=== PATIENT | female | born 1965 | race African-American/Black ===

== ENCOUNTER 2020-05-23 08:27 | Emergency (ER) | payer OTHER ==
[~2020-05-23] VITALS: Ht 167.6 cm; Wt 77.1 kg
[~2020-05-23 08:27] MED LIST: DIFLUCAN200 MG ORAL; DOXYCYCLINE MO100 MG ORAL; IBUPROFEN600 MG ORAL; MECLIZINE HCL25 MG ORAL
[2020-05-23] MEDS ORDERED: Omnipaque 350 100ml vial INJ PRN ×2 (08:45)
--- NOTE | 2020-05-23 08:45 | NUR ---
ED Nurse Note:pt. came from home with c/o sore throat, lump on left neck and numbness for 1 week, she is A/Ox4 ambulatory with steady gait, no fever, placed on teletypesetter monitor
[2020-05-23] MEDS ORDERED: HYDROCHLOROTH12.5 MG ORAL (08:51)
[2020-05-23] MEDS ORDERED: TRAZODONE HCL50 MG ORAL (08:51)
[2020-05-23 08:55] VITALS: BP 166/106
--- NOTE | 2020-05-23 08:55 | Emergency Room Report ---
History of Present Illness General Chief Complaint: Sore Throat Source: Patient Present Illness HPI 55-year-old female history of hypertension, history of treated syphilis, off her hypertensive meds for 6 months presents with sore throat fatigue generalized weakness, now with left arm tingling that started at 5 AM today, patient denies any fevers chills chest pain shortness of breath patient was concerned that she may be developing a stroke, she denies any slurring of her speech difficulty ambulating no known aggravating relieving factors severity is mild, constant patient presents for evaluation and treatment Allergies: Coded Allergies: PENICILLIN G (Unverified Allergy, Mild, 03/11/15) COVID-19 Screening Contact w/high risk pt: No Experienced COVID-19 symptoms?: No COVID-19 Testing performed CASINO ATTENDANT: No Patient History Past Medical History: see triage record Social History: Reports: smoking, alcohol use - Last drink today, drug use - Marijuana Now: No Reviewed Nursing Documentation: PMH: Agreed; PSxH: Agreed Nursing Documentation-PMH Past Medical History: No History, Except For Hx Hypertension: Yes Hx COPD: Yes Review of Systems All Other Systems: negative except mentioned in HPI Physical Exam Sp02 EP Interpretation: reviewed, normal General Appearance: well appearing, no apparent distress, alert Head: normocephalic, atraumatic Eyes: bilateral eye PERRL, bilateral eye EOMI ENT: uvula midline, moist mucus membranes Neck: supple, thyroid normal, supple/symm/no masses Respiratory: lungs clear, no respiratory distress, no retraction, no accessory muscle use Cardiovascular #1: normal peripheral pulses, regular rate, rhythm, no edema, no gallop, no murmur Gastrointestinal: non tender, soft, no guarding, no rebound Musculoskeletal: normal inspection Neurologic: alert, oriented x3, speech normal, normal gait, other - No facial droop Psychiatric: mood/affect normal Skin: no rash, warm/dry Medical Decision Making Diagnostic Impression: Primary Impression: Arm paresthesia, left Additional Impression: Pharyngitis Qualified Codes: J02.9 - Acute pharyngitis, unspecified ER Course 55-year-old female presents with sore throat, fatigue, paresthesias of the left arm, patient initially came concern for possible stroke last known well time 5 AM Neurological exam completely unremarkable Patient able to ambulate seen multiple times on her cell phone walking without any facial droop, dysarthria will rule out stroke MRI negative, CT head negative, CT neck shows pharyngitis We will start patient on clindamycin Return precautions discussed Disposition home with return precautions Laboratory Tests Test 05/23/20 09:00 05/23/20 09:05 05/23/20 09:08 Urine Color Yellow Urine Appearance Slightly cloudy Urine pH 6 (4.5-8.0) Urine Specific [place] 1.020 (1.005-1.035) Urine Protein Negative (NEGATIVE) Urine Glucose (UA) Negative (NEGATIVE) Urine Ketones Negative (NEGATIVE) Urine Blood 1+ (NEGATIVE) H Urine Nitrite Negative (NEGATIVE) Urine Bilirubin Negative (NEGATIVE) Urine Urobilinogen Normal MG/DL (0.0-1.0) Urine Leukocyte Esterase 3+ (NEGATIVE) H Urine RBC 0-2 /HPF (0 - 2) Urine WBC 20-30 /HPF (0 - 2) H Urine Squamous Epithelial Cells Few /LPF (NONE/OCC) Urine Bacteria Few /HPF (NONE) Urine Mucus Few /LPF (NONE/OCC) H Urine Opiates Screen Negative (NEGATIVE) Urine Barbiturates Screen Negative (NEGATIVE) Phencyclidine (PCP) Screen Negative (NEGATIVE) Urine Amphetamines Screen Negative (NEGATIVE) Urine Benzodiazepines Screen Negative (NEGATIVE) Urine Cocaine Screen Positive (NEGATIVE) H Urine Marijuana (THC) Screen Positive (NEGATIVE) H White Blood Count 6.4 K/UL (4.8-10.8) Red Blood Count 4.42 M/UL (4.20-5.40) Hemoglobin 13.4 G/DL (12.0-16.0) Hematocrit 38.2 % (37.0-47.0) Mean Corpuscular Volume 86 FL (80-99) Mean Corpuscular Hemoglobin 30.3 PG (27.0-31.0) Mean Corpuscular Hemoglobin Concent 35.1 G/DL (32.0-36.0) Red Cell Distribution Width 14.0 % (11.6-14.8) Platelet Count 249 K/UL (150-450) Mean Platelet Volume 7.1 FL (6.5-10.1) Neutrophils (%) (Auto) 63.5 % (45.0-75.0) Lymphocytes (%) (Auto) 26.5 % (20.0-45.0) Monocytes (%) (Auto) 8.2 % (1.0-10.0) Eosinophils (%) (Auto) 0.5 % (0.0-3.0) Basophils (%) (Auto) 1.4 % (0.0-2.0) Prothrombin Time 11.0 SEC (9.30-11.50) Prothrombin Time INR 1.0 (0.9-1.1) Activated Partial Thromboplast Time 28 SEC (23-33) Sodium Level 139 MMOL/L (136-145) Potassium Level 4.0 MMOL/L (3.5-5.1) Chloride Level 106 MMOL/L (98-107) Carbon Dioxide Level 25 MMOL/L (21-32) Anion Gap 8 mmol/L (5-15) Blood Urea Nitrogen 14 mg/dL (7-18) Creatinine 1.0 MG/DL (0.55-1.30) Estimated Glomerular Filtration Rate > 60 mL/min (>60) Glucose Level 93 MG/DL (74-106) Calcium Level 8.9 MG/DL (8.5-10.1) Total Bilirubin 0.3 MG/DL (0.2-1.0) Aspartate Amino Transferase (AST) 25 U/L (15-37) Alanine Aminotransferase (ALT) 27 U/L (12-78) Alkaline Phosphatase 78 U/L (46-116) Troponin I 0.003 ng/mL (0.000-0.056) Total Protein 7.6 G/DL (6.4-8.2) Albumin 3.4 G/DL (3.4-5.0) Globulin 4.2 g/dL Albumin/Globulin Ratio 0.8 (1.0-2.7) L Serum Alcohol < 3 mg/dL POC Whole Blood Glucose Pending Microbiology Date/Time Source Procedure Growth Status 05/23/20 09:05 Nasopharynx SARS-CoV-2 RdRp Gene Assay - Final Complete EKG Diagnostic Results Troponin ordered: Yes When was troponin ordered?: May 23, 2020 EKG Time: 08:42 EP Interpretation: NSR, rate 94, QTc 457, no acute ST elevations, normal axis Chest X-Ray Diagnostic Results Chest X-Ray Diagnostic Results : Chest X-Ray Ordered: Yes # of Views/Limited/Complete: 1 View Indication: Chest Pain EP Interpretation: Yes Interpretation: no consolidation, no effusion, no pneumothorax, no acute cardiopulmonary disease Impression: No acute disease Electronically Signed by: Dada Hernandez MD CT/MRI/US Diagnostic Results CT/MRI/US Diagnostic Results : Impression EXAM: CT Neck With Intravenous Contrast CLINICAL HISTORY: 55-year-old female history of hypertension, history of treated syphilis, off her hypertensive meds for 6 months presents with sore throat fatigue generalized weakness, now with left arm tingling that started at 5 AM today, patient denies any fevers chills chest pain shortness of breath patient was concerned that she may be developing a stroke, she denies any slurring of her speech difficulty ambulating no known aggravating relieving factors severity is mild, constant patient presents for evaluation and treatment TECHNIQUE: Axial computed tomography images of the neck with intravenous contrast. CTDI is 193.4 mGy and DLP is 2567.10 mGy-cm. One or more of the following dose reduction techniques were used: automated exposure control, adjustment of the mA and/or kV according to patient size, use of iterative reconstruction technique. COMPARISON: No relevant prior studies available. FINDINGS: Oropharynx: Mild fullness of the tonsils. Query 8mm nodule or tiny fluid in the right tonsils. Hypopharynx: Mild pharyngeal thickening. Inflammatory changes along the left pharyngeal soft tissue. Larynx: Unremarkable. Normal epiglottis. Trachea: Unremarkable. Retropharyngeal space: Unremarkable. Submandibular/parotid glands: Slightly prominent bilateral submandibular ducts. Mild inflammatory changes around the left submandibular gland extending along the anterior neck deep soft tissue. There is thickening effacement of the left piriformis sinus. No mass effect, fluid collection. No stones. Thyroid: Unremarkable. No enlarged or calcified nodules. Bones/joints: Slight reversal of normal cervical lordosis. No acute fracture. Soft tissues: Mild thickening of the left platysma muscle. No soft tissue gas. No fluid collections or masses. Vasculature: Incidental note of bovine aortic arch. Lymph nodes: Slightly prominent bilateral jugulodigastric and cervical lymph nodes, slightly larger on the left. Lung apices: Unremarkable as visualized. IMPRESSION: 1. Mild fullness of the tonsils. Query 8mm nodule or tiny fluid in the right tonsils. 2. Mild pharyngeal thickening. Inflammatory changes along the left pharyngeal soft tissue. Query pharyngitis. 3. Slightly prominent bilateral submandibular ducts, no definite stones. Mild inflammatory changes around the left submandibular gland extending along the anterior neck deep soft tissue. Likely Sialoadenitis. There is thickening effacement of the left piriformis sinus. 4. Slightly prominent bilateral jugulodigastric and cervical lymph nodes, slightly larger on the left. Likely reactive. Dictated By: KATY SIFUENTES M.D. Electronically Signed By:KATY SIFUENTES M.D. Signed Date/Time05/23/20 0628 CC: Dada Hernandez MD Procedure: CTA Head wo/w Contrast EXAM: CT Angiography Head With Intravenous Contrast CLINICAL HISTORY: 55-year-old female history of hypertension, history of treated syphilis, off her hypertensive meds for 6 months presents with sore throat fatigue generalized weakness, now with left arm tingling that started at 5 AM today, patient denies any fevers chills chest pain shortness of breath patient was concerned that she may be developing a stroke, she denies any slurring of her speech difficulty ambulating no known aggravating relieving factors severity is mild, constant patient presents for evaluation and treatment TECHNIQUE: Axial computed tomographic angiography images of the head with intravenous contrast. CTDI is 93.4 mGy and DLP is 2567.1 mGy-cm. One or more of the following dose reduction techniques were used: automated exposure control, adjustment of the mA and/or kV according to patient size, use of iterative reconstruction technique. MIP reconstructed images were created and reviewed. Coronal and sagittal reformatted images were created and reviewed. COMPARISON: No relevant prior studies available. FINDINGS: Right internal carotid artery: No acute findings. Intracranial segment is patent with no significant stenosis. No aneurysm. Right anterior cerebral artery: Unremarkable. No occlusion or significant stenosis. No aneurysm. Right middle cerebral artery: Unremarkable. No occlusion or significant stenosis. No aneurysm. Right posterior cerebral artery: Unremarkable. No occlusion or significant stenosis. No aneurysm. Right vertebral artery: Unremarkable as visualized. Left internal carotid artery: No acute findings. Intracranial segment is patent with no significant stenosis. No aneurysm. Left anterior cerebral artery: Unremarkable. No occlusion or significant stenosis. No aneurysm. Left middle cerebral artery: Unremarkable. No occlusion or significant stenosis. No aneurysm. Left posterior cerebral artery: Unremarkable. No occlusion or significant stenosis. No aneurysm. Left vertebral artery: Unremarkable as visualized. Basilar artery: Unremarkable. No occlusion or significant stenosis. No aneurysm. IMPRESSION: Normal head CTA. Dictated By: KATY SIFUENTES M.D. Electronically Signed By:KATY SIFUENTES M.D. Signed Date/Time05/23/20 8919 CC: Dada Hernandez MD Procedure: CTA Neck wo/w Contrast EXAM: CT Angiography Neck With Intravenous Contrast CLINICAL HISTORY: 55-year-old female history of hypertension, history of treated syphilis, off her hypertensive meds for 6 months presents with sore throat fatigue generalized weakness, now with left arm tingling that started at 5 AM today, patient denies any fevers chills chest pain shortness of breath patient was concerned that she may be developing a stroke, she denies any slurring of her speech difficulty ambulating no known aggravating relieving factors severity is mild, constant patient presents for evaluation and treatment TECHNIQUE: Axial computed tomographic angiography images of the neck with intravenous contrast. CTDI is 193.4 mGy and DLP is 2.6 7.1 mGy-cm. One or more of the following dose reduction techniques were used: automated exposure control, adjustment of the mA and/or kV according to patient size, use of iterative reconstruction technique. MIP reconstructed images were created and reviewed. Coronal and sagittal reformatted images were created and reviewed. COMPARISON: No relevant prior studies available. FINDINGS: VASCULATURE: Right common carotid artery: Unremarkable. No significant stenosis. No dissection or occlusion. Right internal carotid artery: Unremarkable. Extracranial segment is patent with no significant stenosis. No dissection or occlusion. Right external carotid artery: Unremarkable. No occlusion. Right vertebral artery: Unremarkable. No significant stenosis. No dissection or occlusion. Left common carotid artery: Unremarkable. No significant stenosis. No dissection or occlusion. Left internal carotid artery: Unremarkable. Extracranial segment is patent with no significant stenosis. No dissection or occlusion. Left external carotid artery: Unremarkable. No occlusion. Left vertebral artery: Unremarkable. No significant stenosis. No dissection or occlusion. NECK: Bones/joints: Slight reversal normal cervical lordosis. No acute fracture. No dislocation. Soft tissues: Refer to CT neck. CAROTID STENOSIS REFERENCE USING NASCET CRITERIA: % ICA stenosis = (1 - narrowest ICA diameter/diameter of distal cervical ICA) x 100. Mild - <50% stenosis. Moderate - 50-69% stenosis. Severe - 70-94% stenosis. Near occlusion - 95-99% stenosis. Occluded - 100% stenosis. IMPRESSION: Normal neck CTA. Procedure: MRI Brain no Contrast EXAM: MR Head Without Intravenous Contrast CLINICAL HISTORY: 55-year-old female history of hypertension, history of treated syphilis, off her hypertensive meds for 6 months presents with sore throat fatigue generalized weakness, now with left arm tingling that started at 5 AM today, patient denies any fevers chills chest pain shortness of breath patient was concerned that she may be developing a stroke, she denies any slurring of her speech difficulty ambulating no known aggravating relieving factors severity is mild, constant patient presents for evaluation and treatment TECHNIQUE: Magnetic resonance images of the head/brain without intravenous contrast in multiple planes. COMPARISON: CT head today FINDINGS: Brain: A few scattered T2 white matter hyperintensity are nonspecific. No hemorrhage. No acute infarct. No intra-or extra-axial fluid collections or masses. No edema. No mass effect or midline shift. Ventricles: Unremarkable. No ventriculomegaly. Bones/joints: Unremarkable. Sinuses: Unremarkable as visualized. No acute sinusitis. Mastoid air cells: Unremarkable as visualized. No mastoid effusion. Orbits: Unremarkable as visualized. IMPRESSION: 1. No acute findings in the head/brain. 2. A few scattered T2 white matter hyperintensity are nonspecific, likely mild chronic small vessel ischemic changes. Dictated By: KATY SIFUENTES M.D. Electronically Signed By:KATY SIFUENTES M.D. Signed Date/Time05/23/20 1246 CC: Dada Hernandez MD Disposition: HOME, SELF-CARE Condition: Stable Scripts Clindamycin Hcl* (CLINDAMYCIN HCL*) 150 Mg Capsule 450 MG ORAL TID for 10 Days, #90 CAP Prov: Dada Hernandez MD 05/23/20 Referrals: [facility],REFERRING (PCP) Patient Instructions: Pharyngitis, [id number] Additional Instructions: The patient was provided with discharge instructions, notified to follow-up with a primary care doctor and or specialist in the next 24-48 hours, and to return to the ED if they have worsening of their symptoms. Please note that this report is being documented using Climateminder technology. This can lead to erroneous entry secondary to incorrect interpretation by the dictating instrument. Dada Hernandez MD May 23, 2020 08:55
--- NOTE | 2020-05-23 08:56 | NUR ---
ED Nurse Note:pt. had CT head done
--- NOTE | 2020-05-23 09:13 | NUR ---
ED Nurse Note:blood ,urine and covid swab sent to labs
[2020-05-23 09:31] LABS: APPEARANCE,URINE SLIGHTLY CLOUDY; BILIRUBIN, URINE NEGATIVE (NEGATIVE); GLUCOSE, URINE (UA) NEGATIVE (NEGATIVE); KETONES,URINE NEGATIVE (NEGATIVE); LEUKOCYTE ESTERASE ,URINE 3+ (NEGATIVE); NITRITE,URINE NEGATIVE (NEGATIVE); PH,URINE 6 (4.5-8.0); PROTEIN,URINE NEGATIVE (NEGATIVE); UROBILINOGEN,URINE NORMAL MG/DL (0.0-1.0)
[2020-05-23 09:32] LABS: BASOPHILS % (AUTO) 1.4 % (0.0-2.0); EOSINOPHILS % (AUTO) 0.5 % (0.0-3.0); HEMATOCRIT 38.2 % (37.0-47.0); HEMOGLOBIN 13.4 G/DL (12.0-16.0); LYMPHOCYTES % (AUTO) 26.5 % (20.0-45.0); MEAN CORPUSCULAR VOLUME 86 FL (80-99); MONOCYTES % (AUTO) 8.2 % (1.0-10.0); NEUTROPHILS % (AUTO) 63.5 % (45.0-75.0); PLATELET COUNT 249 K/UL (150-450); RED BLOOD COUNT 4.42 M/UL (4.20-5.40); WHITE BLOOD COUNT 6.4 K/UL (4.8-10.8)
[2020-05-23 09:37] LABS: COLOR,URINE YELLOW
[2020-05-23 09:42] LABS: ANION GAP 8 mmol/L (5-15); BLOOD UREA NITROGEN 14 mg/dL (7-18); CALCIUM 8.9 MG/DL (8.5-10.1); CARBON DIOXIDE 25 MMOL/L (21-32); CHLORIDE 106 MMOL/L (98-107); SODIUM 139 MMOL/L (136-145)
--- NOTE | 2020-05-23 09:45 | Diagnostic Imaging Report ---
EXAM: CT Head Without Intravenous Contrast CLINICAL HISTORY: AMS TECHNIQUE: Axial computed tomography images of the head/brain without intravenous contrast. CTDI is 53.4 mGy and DLP is 992.10 mGy-cm. One or more of the following dose reduction techniques were used: automated exposure control, adjustment of the mA and/or kV according to patient size, use of iterative reconstruction technique. COMPARISON: No relevant prior studies available. FINDINGS: Brain: No acute intracranial hemorrhage. No CT evidence of acute infarct. No mass effect or midline shift. Ventricles: Unremarkable. No ventriculomegaly. Bones/joints: Unremarkable. No acute fracture. Soft tissues: Unremarkable. Sinuses: Unremarkable as visualized. Mastoid air cells: Unremarkable as visualized. No mastoid effusion. IMPRESSION: No acute intracranial process.
[2020-05-23 09:46] LABS: ALANINE AMINOTRANSFERASE 27 U/L (12-78); ALBUMIN 3.4 G/DL (3.4-5.0); ALBUMIN/GLOBULIN RATIO 0.8 (1.0-2.7); ALKALINE PHOSPHATASE 78 U/L (46-116); ASPARTATE AMINO TRANSFERASE 25 U/L (15-37); BILIRUBIN,TOTAL 0.3 MG/DL (0.2-1.0)
--- NOTE | 2020-05-23 09:58 | Diagnostic Imaging Report ---
EXAM: XR Chest, 1 View CLINICAL HISTORY: AMS TECHNIQUE: Frontal view of the chest. COMPARISON: No relevant prior studies available. FINDINGS: Lungs: Unremarkable. No consolidation. Pleural space: Unremarkable. No pneumothorax. Heart: Unremarkable. No cardiomegaly. Mediastinum: Unremarkable. Bones/joints: Unremarkable. IMPRESSION: No acute cardiopulmonary process.
--- NOTE | 2020-05-23 11:33 | NUR ---
ED Nurse Note:pt. was taken to MRI
--- NOTE | 2020-05-23 12:29 | Diagnostic Imaging Report ---
EXAM: CT Neck With Intravenous Contrast CLINICAL HISTORY: 55-year-old female history of hypertension, history of treated syphilis, off her hypertensive meds for 6 months presents with sore throat fatigue generalized weakness, now with left arm tingling that started at 5 AM today, patient denies any fevers chills chest pain shortness of breath patient was concerned that she may be developing a stroke, she denies any slurring of her speech difficulty ambulating no known aggravating relieving factors severity is mild, constant patient presents for evaluation and treatment TECHNIQUE: Axial computed tomography images of the neck with intravenous contrast. CTDI is 193.4 mGy and DLP is 2567.10 mGy-cm. One or more of the following dose reduction techniques were used: automated exposure control, adjustment of the mA and/or kV according to patient size, use of iterative reconstruction technique. COMPARISON: No relevant prior studies available. FINDINGS: Oropharynx: Mild fullness of the tonsils. Query 8mm nodule or tiny fluid in the right tonsils. Hypopharynx: Mild pharyngeal thickening. Inflammatory changes along the left pharyngeal soft tissue. Larynx: Unremarkable. Normal epiglottis. Trachea: Unremarkable. Retropharyngeal space: Unremarkable. Submandibular/parotid glands: Slightly prominent bilateral submandibular ducts. Mild inflammatory changes around the left submandibular gland extending along the anterior neck deep soft tissue. There is thickening effacement of the left piriformis sinus. No mass effect, fluid collection. No stones. Thyroid: Unremarkable. No enlarged or calcified nodules. Bones/joints: Slight reversal of normal cervical lordosis. No acute fracture. Soft tissues: Mild thickening of the left platysma muscle. No soft tissue gas. No fluid collections or masses. Vasculature: Incidental note of bovine aortic arch. Lymph nodes: Slightly prominent bilateral jugulodigastric and cervical lymph nodes, slightly larger on the left. Lung apices: Unremarkable as visualized. IMPRESSION: 1. Mild fullness of the tonsils. Query 8mm nodule or tiny fluid in the right tonsils. 2. Mild pharyngeal thickening. Inflammatory changes along the left pharyngeal soft tissue. Query pharyngitis. 3. Slightly prominent bilateral submandibular ducts, no definite stones. Mild inflammatory changes around the left submandibular gland extending along the anterior neck deep soft tissue. Likely Sialoadenitis. There is thickening effacement of the left piriformis sinus. 4. Slightly prominent bilateral jugulodigastric and cervical lymph nodes, slightly larger on the left. Likely reactive.
--- NOTE | 2020-05-23 12:30 | NUR ---
ED Nurse Note:pt. is back from MRI, condition stable
--- NOTE | 2020-05-23 12:34 | Diagnostic Imaging Report ---
EXAM: CT Angiography Neck With Intravenous Contrast CLINICAL HISTORY: 55-year-old female history of hypertension, history of treated syphilis, off her hypertensive meds for 6 months presents with sore throat fatigue generalized weakness, now with left arm tingling that started at 5 AM today, patient denies any fevers chills chest pain shortness of breath patient was concerned that she may be developing a stroke, she denies any slurring of her speech difficulty ambulating no known aggravating relieving factors severity is mild, constant patient presents for evaluation and treatment TECHNIQUE: Axial computed tomographic angiography images of the neck with intravenous contrast. CTDI is 193.4 mGy and DLP is 2.6 7.1 mGy-cm. One or more of the following dose reduction techniques were used: automated exposure control, adjustment of the mA and/or kV according to patient size, use of iterative reconstruction technique. MIP reconstructed images were created and reviewed. Coronal and sagittal reformatted images were created and reviewed. COMPARISON: No relevant prior studies available. FINDINGS: VASCULATURE: Right common carotid artery: Unremarkable. No significant stenosis. No dissection or occlusion. Right internal carotid artery: Unremarkable. Extracranial segment is patent with no significant stenosis. No dissection or occlusion. Right external carotid artery: Unremarkable. No occlusion. Right vertebral artery: Unremarkable. No significant stenosis. No dissection or occlusion. Left common carotid artery: Unremarkable. No significant stenosis. No dissection or occlusion. Left internal carotid artery: Unremarkable. Extracranial segment is patent with no significant stenosis. No dissection or occlusion. Left external carotid artery: Unremarkable. No occlusion. Left vertebral artery: Unremarkable. No significant stenosis. No dissection or occlusion. NECK: Bones/joints: Slight reversal normal cervical lordosis. No acute fracture. No dislocation. Soft tissues: Refer to CT neck. CAROTID STENOSIS REFERENCE USING NASCET CRITERIA: % ICA stenosis = (1 - narrowest ICA diameter/diameter of distal cervical ICA) x 100. Mild - <50% stenosis. Moderate - 50-69% stenosis. Severe - 70-94% stenosis. Near occlusion - 95-99% stenosis. Occluded - 100% stenosis. IMPRESSION: Normal neck CTA.
--- NOTE | 2020-05-23 12:40 | Diagnostic Imaging Report ---
EXAM: CT Angiography Head With Intravenous Contrast CLINICAL HISTORY: 55-year-old female history of hypertension, history of treated syphilis, off her hypertensive meds for 6 months presents with sore throat fatigue generalized weakness, now with left arm tingling that started at 5 AM today, patient denies any fevers chills chest pain shortness of breath patient was concerned that she may be developing a stroke, she denies any slurring of her speech difficulty ambulating no known aggravating relieving factors severity is mild, constant patient presents for evaluation and treatment TECHNIQUE: Axial computed tomographic angiography images of the head with intravenous contrast. CTDI is 93.4 mGy and DLP is 2567.1 mGy-cm. One or more of the following dose reduction techniques were used: automated exposure control, adjustment of the mA and/or kV according to patient size, use of iterative reconstruction technique. MIP reconstructed images were created and reviewed. Coronal and sagittal reformatted images were created and reviewed. COMPARISON: No relevant prior studies available. FINDINGS: Right internal carotid artery: No acute findings. Intracranial segment is patent with no significant stenosis. No aneurysm. Right anterior cerebral artery: Unremarkable. No occlusion or significant stenosis. No aneurysm. Right middle cerebral artery: Unremarkable. No occlusion or significant stenosis. No aneurysm. Right posterior cerebral artery: Unremarkable. No occlusion or significant stenosis. No aneurysm. Right vertebral artery: Unremarkable as visualized. Left internal carotid artery: No acute findings. Intracranial segment is patent with no significant stenosis. No aneurysm. Left anterior cerebral artery: Unremarkable. No occlusion or significant stenosis. No aneurysm. Left middle cerebral artery: Unremarkable. No occlusion or significant stenosis. No aneurysm. Left posterior cerebral artery: Unremarkable. No occlusion or significant stenosis. No aneurysm. Left vertebral artery: Unremarkable as visualized. Basilar artery: Unremarkable. No occlusion or significant stenosis. No aneurysm. IMPRESSION: Normal head CTA.
--- NOTE | 2020-05-23 12:47 | Diagnostic Imaging Report ---
EXAM: MR Head Without Intravenous Contrast CLINICAL HISTORY: 55-year-old female history of hypertension, history of treated syphilis, off her hypertensive meds for 6 months presents with sore throat fatigue generalized weakness, now with left arm tingling that started at 5 AM today, patient denies any fevers chills chest pain shortness of breath patient was concerned that she may be developing a stroke, she denies any slurring of her speech difficulty ambulating no known aggravating relieving factors severity is mild, constant patient presents for evaluation and treatment TECHNIQUE: Magnetic resonance images of the head/brain without intravenous contrast in multiple planes. COMPARISON: CT head today FINDINGS: Brain: A few scattered T2 white matter hyperintensity are nonspecific. No hemorrhage. No acute infarct. No intra-or extra-axial fluid collections or masses. No edema. No mass effect or midline shift. Ventricles: Unremarkable. No ventriculomegaly. Bones/joints: Unremarkable. Sinuses: Unremarkable as visualized. No acute sinusitis. Mastoid air cells: Unremarkable as visualized. No mastoid effusion. Orbits: Unremarkable as visualized. IMPRESSION: 1. No acute findings in the head/brain. 2. A few scattered T2 white matter hyperintensity are nonspecific, likely mild chronic small vessel ischemic changes.
[2020-05-23 12:53] VITALS: BP 154/101
[2020-05-23] MEDS ORDERED: CLINDAMYCIN HC150 MG ORAL (12:58)
[2020-05-23 13:05] VITALS: BP 154/101
--- NOTE | 2020-05-23 13:05 | NUR ---
ER DISCHARGE NOTE: Patient is cleared to be discharged per ERMD, pt is aox4, on room air, with stable vital signs. pt was given dc and prescription instructions, pt was able to verbalize understanding, pt id band and iv site removed without complications. pt is able to ambulate with steady gait. pt took all belongings.
== END 2020-05-23 13:07 | disposition home or self-care (01) ==
LOC: EMR 08:51
DX: R20.2 Paresthesia of skin (principal); J02.9 Acute pharyngitis, unspecified; R53.1 Weakness; Z20.828 Contact with and (suspected) exposure to other viral communicable diseases; I10 Essential (primary) hypertension; J44.9 Chronic obstructive pulmonary disease, unspecified; Z88.0 Allergy status to penicillin
CPT/HCPCS: 36415; 70450; 70491; 70496; 70498; 70551; 71045; 80053; 80307; 81003; 82962; 84484; 85025; 85610; 85730; 87086; 93005; 96360; G0480; Q9967; U0002; Z7502; 99284